=== PATIENT | female | born 1980 | race African-American/Black ===

== ENCOUNTER 2018-08-16 08:05 | Emergency (ER) | payer BC ==
[~2018-08-16] VITALS: Ht 165.1 cm; Wt 95.3 kg
--- OUTSIDE RECORDS SUMMARY | 2018-08-16 08:08 | XMS REPORT | Clinical Summary ---
Author Author Arturo [facility] Organization [place] [facility] Address Unknown Phone Unavailable Care Team Providers Care Apprentice Architect Name Role Phone Asked, No Pcp PCP Unavailable Allergies No Known Allergies Medications End Date Status Medication Sig Dispensed Refills Start Date Active amLODIPine (NORVASC) 10 Take 10 mg by 0 mg tablet mouth daily. Active triamterene-hydrochloroth Take 1 tablet 0 iazid (MAXZIDE) 75-50 mg by mouth per tablet daily. Active Problems Not on file Encounters Care Team Description Date Type Specialty Krzysztof Vaca MD Secondary hypertension (Primary Dx) 08/15/2018 Emergency Emergency Medicine after 08/15/2017 Social History Date Tobacco Use Types Packs/Day Years Used Never Smoker Smokeless Tobacco: Never Used Alcohol Use Drinks/Week oz/Week Comments No Alcohol Habits Answer Date Recorded How often do you have a drink containing alcohol? Never 08/15/2018 How many drinks containing alcohol do you have on Not asked a typical day when you are drinking? How often do you have six or more drinks on one Not asked occasion? Sex Assigned at Date Recorded Not on file Industry Job Start Date Occupation Not on file Not on file Not on file Travel End Travel History Travel Start No recent travel history available. Last Filed Vital Signs Time Taken Vital Sign Reading 08/15/2018 7:38 AM [employer] Blood Pressure 129/81 08/15/2018 7:38 AM [employer] Pulse 93 08/15/2018 7:38 AM [employer] Temperature 36.6 C (97.8 F) 08/15/2018 7:38 AM [employer] Respiratory Rate 16 08/15/2018 7:38 AM [employer] Oxygen Saturation 98% - Inhaled Oxygen - Concentration 08/15/2018 7:36 AM [employer] Weight 99.8 kg (220 lb) 08/15/2018 7:36 AM [employer] Height 165.1 cm (5' 5") 08/15/2018 7:36 AM [employer] Body Mass Index 36.61 Plan of Treatment Not on file Procedures Comments Procedure Name Priority Date/Time Associated Diagnosis HCG QUALITATIVE, URINE Timed 08/15/2018 SCREEN 8:25 AM [employer] after 08/15/2017 Results * hCG qualitative, urine screen (08/15/2018 8:25 AM [employer]) hCG qualitative, urine Negative Negative ARTURO BORJAS Comment: [facility] The manufacturers stated sensitivity of HcG test for serum is >/=10 mIU/ml and urine is >/=20mIU/ml. Specimen Urine Performing Organization Address City/State/[place]code Phone Number [facility] [place] [address] [place] [phone] PATHOLOGY AND GENOMIC MEDICINE ARTURO BORJAS [place] [id number] [address] after 08/15/2017 Insurance Payer Benefit Subscriber ID Type Phone Address Plan / Group BCBS BCBS xxxxxxxxxxxx PPO CHOICE PPO/LORENZA ALARCON PPO Advance Directives Patient has advance care planning documents on file. For more information, ronaldo benites contact: Arturo Borjas [address] [place] [address]
[2018-08-16] MEDS ORDERED: ACETAMINOPHEN 325 MG TAB PO ONE (08:30)
[2018-08-16] MEDS ORDERED: CLONIDINE HCL 0.1 MG TAB PO ONE (08:30)
[2018-08-16] MEDS ORDERED: FAMOTIDINE 20 MG/2 ML VIAL IV STA (08:48)
[2018-08-16] MEDS ORDERED: ENALAPRILAT IV INJ 1.25 MG/ML VIAL IV STA (08:48)
[2018-08-16] MEDS ORDERED: ONDANSETRON HCL INJ 2 MG/ML VIAL IV STA (08:48)
[2018-08-16] MEDS ORDERED: KETOROLAC TROMETHAMINE 30 MG/ML VIAL IV STA (08:48)
[2018-08-16] MEDS ORDERED: DEXAMETHASONE SOD PHOS 10 MG/1 ML VIAL IV ONE (09:00)
[2018-08-16] MEDS ORDERED: NICARDIPINE HCL SOLN 20 MG in SODIUM CHLORIDE 0.9% 250ML 200 ML IV ONE (09:15)
--- NOTE | 2018-08-16 09:51 | Diagnostic Imaging Report ---
CT BRAIN -[facility] HISTORY: Headache, high blood pressure COMPARISON: None. TECHNIQUE: Noncontrast axial scans were obtained from skull base to the vertex. Coronal and sagittal reconstructions obtained from the axial data. One or more of the following dose reduction techniques were used: Automated exposure control, adjustment of the mA and/or kV according to patient size, and/or utilization of iterative reconstruction technique. DISCUSSION: Scalp/Skull: Unremarkable. Brain sulci: Appropriate for patient's age. Ventricles: Normal in size and configuration. No hydrocephalus. Extra-axial spaces: No masses or fluid collections. Parenchyma: Minimal carotid siphon calcification is present. No masses, hemorrhage, or large vascular territory acute infarct. Dural sinuses: No abnormal densities. Sellar/Suprasellar region: Intact. Skull base: Intact. Incidental findings: None. IMPRESSION: No acute intracranial abnormalities. Signed by: Dr. Will Monterroso M.D. on 08/16/2018 9:48 AM
[2018-08-16 10:27] VITALS: BP 124/82
== END 2018-08-16 10:35 | disposition home or self-care (01) ==
LOC: FSED 08:05
DX: I16.0 Hypertensive urgency (principal); I10 Essential (primary) hypertension
CPT/HCPCS: 70450; 80053; 81003; 81025; 85025; 93005; 99284; J1100; J1885; J2405; J7050

== ENCOUNTER 2018-11-03 14:53 | Emergency (ER) | payer BC ==
[~2018-11-03] VITALS: Ht 165.1 cm; Wt 95.3 kg
--- OUTSIDE RECORDS SUMMARY | 2018-11-03 14:55 | XMS REPORT | Clinical Summary ---
Author Author Arturo [facility] Organization [place] [facility] Address Unknown Phone Unavailable Care Team Providers Care Digital Printer Operator Name Role Phone Asked, No Pcp PCP [...] (Primary Dx) 08/15/2018 Emergency Emergency Medicine after 11/02/2017 Social History Date Tobacco Use Types Packs/Day [...] Taken Vital Sign Reading 08/15/2018 7:38 AM CUSTOMER CARE SPECIALIST Blood Pressure 129/81 08/15/2018 7:38 AM CUSTOMER CARE SPECIALIST Pulse 93 08/15/2018 7:38 AM CUSTOMER CARE SPECIALIST Temperature 36.6 C (97.8 F) 08/15/2018 7:38 AM CUSTOMER CARE SPECIALIST Respiratory Rate 16 08/15/2018 7:38 AM CUSTOMER CARE SPECIALIST Oxygen Saturation 98% - Inhaled Oxygen - Concentration 08/15/2018 7:36 AM CUSTOMER CARE SPECIALIST Weight 99.8 kg (220 lb) 08/15/2018 7:36 AM CUSTOMER CARE SPECIALIST Height 165.1 cm (5' 5") 08/15/2018 7:36 AM CUSTOMER CARE SPECIALIST Body Mass Index 36.61 Plan of Treatment Not on file Procedures Comments Procedure Name Priority Date/Time Associated Diagnosis HCG QUALITATIVE, URINE Timed 08/15/2018 SCREEN 8:25 AM CUSTOMER CARE SPECIALIST after 11/02/2017 Results * hCG qualitative, urine screen (08/15/2018 8:25 AM CUSTOMER CARE SPECIALIST) hCG qualitative, urine Negative Negative ARTURO BORJAS Comment: [facility] The manufacturers stated sensitivity of HcG test for serum is >/=10 mIU/ml and urine is >/=20mIU/ml. Specimen Urine Performing Organization Address City/State/Zipcode Phone Number [facility] [place] [address] [place] [phone] PATHOLOGY AND GENOMIC MEDICINE ARTURO BORJAS [place] [id number] [address] after 11/02/2017 Insurance Payer Benefit Subscriber ID Type Phone Address Plan / Group BCBS BCBS xxxxxxxxxxxx PPO CHOICE PPO/LORENZA ALARCON PPO Advance Directives Patient has advance care planning documents on file. For more information, ronaldo benites contact: Arturo Borjas [address] [place] [address]
--- OUTSIDE RECORDS SUMMARY | 2018-11-03 14:55 | XMS REPORT ---
Author Author [facility] Address Unknown Phone Unavailable Care Team Providers Care Web Engineer Name Role Phone Catracho LEONARDO Unavailable Unavailable Problems This patient has no known problems. Allergies, Adverse Reactions, Alerts This patient has no known allergies or adverse reactions. Medications This patient has no known medications. Results Test Description Test Time Test Comments Text Results Atomic Results Result Comments CT BRAIN WO-HOPD 2018-08-16 09:44:00 [place] [address] Patient Name: VANESSA TOBAR MR #: [id number] : 1980 Age/Sex: 37/F Req #: [id number] Adm Physician: Ordered by: MAN LEONARDO MD Report #: [id number] Location: [facility] Room/Bed: Procedure: [id number] HOPD/CT BRAIN WO-HOPD Exam Date: 08/16/18 Exam Time: 0910 REPORT STATUS: Signed CT BRAIN WO-HOPD HISTORY: Headache, high blood pressure COMPARISON: None. TECHNIQUE: Noncontrast axial scans were obtained from skull base to the vertex. Coronal and sagittal reconstructions obtained from the axial data. One or more of the following dose reduction techniques were used: Automated exposure control, adjustment of the mA and/or kV according to patient size, and/or utilization of iterative reconstruction tech nique. DISCUSSION: Scalp/Skull: Unremarkable. Brain sulci: Appropriate for patient's age. Ventricles: Normal in size and configuration. No hydrocephalus. Extra-axial spaces: No masses or fluid collections. Parenchyma: Minimal carotid siphon calcification is present. No masses, hemorrhage, or large vascular territory acute infarct. Dural sinuses: No abnormal densities. Sellar/Suprasellar region: Intact. Skull base: Intact. Incidental findings: None. IMPRESSION: No acute intracranial abnormalities. Signed by: Dr. Will Martinez M.D. on 08/16/2018 9:48 AM Dictated By: WILL MARTINEZ MD 7 Transcribed By: BRENDA on 08/16/18947 COPY TO: MAN LEONARDO MD
[2018-11-03] MEDS ORDERED: ALBUTEROL/IPRATROPIUM 3 ML NEB NEB ONE (15:15)
[2018-11-03] MEDS ORDERED: ALBUTEROL SULF 0.083% NEB SOLN 3 ML NEB NEB STA (15:42)
[2018-11-03] MEDS ORDERED: METHYLPREDNISOLONE SOD SUCC 125 MG/2ML VIAL IM ONE (15:45)
[2018-11-03 16:51] VITALS: BP 160/90
== END 2018-11-03 16:59 | disposition home or self-care (01) ==
LOC: FSED 14:53
DX: R06.00 Dyspnea, unspecified (principal); J98.01 Acute bronchospasm; J45.31 Mild persistent asthma with (acute) exacerbation
CPT/HCPCS: 87400; 99283; J2930

== ENCOUNTER 2019-01-13 08:22 | Emergency (ER) | payer BC ==
[~2019-01-13] VITALS: Ht 165.1 cm; Wt 99.8 kg
--- OUTSIDE RECORDS SUMMARY | 2019-01-13 08:24 | XMS REPORT | Clinical Summary ---
Author Author [place] [facility] Organization [place] [facility] Address Unknown Phone Unavailable Care Team Providers Care Equipment Operator Intermodal Yard Name Role Phone Liu Esqueda MD PCP Unavailable Allergies No Known Allergies Medications [...] (Primary Dx) 08/15/2018 Emergency Emergency Medicine after 01/12/2018 Social History Date Tobacco Use Types Packs/Day [...] Taken Vital Sign Reading 08/15/2018 7:38 AM SPINDLE TESTER Blood Pressure 129/81 08/15/2018 7:38 AM SPINDLE TESTER Pulse 93 08/15/2018 7:38 AM SPINDLE TESTER Temperature 36.6 C (97.8 F) 08/15/2018 7:38 AM SPINDLE TESTER Respiratory Rate 16 08/15/2018 7:38 AM SPINDLE TESTER Oxygen Saturation 98% - Inhaled Oxygen - Concentration 08/15/2018 7:36 AM SPINDLE TESTER Weight 99.8 kg (220 lb) 08/15/2018 7:36 AM SPINDLE TESTER Height 165.1 cm (5' 5") 08/15/2018 7:36 AM SPINDLE TESTER Body Mass Index 36.61 Plan of Treatment Not on file Procedures Comments Procedure Name Priority Date/Time Associated Diagnosis HCG QUALITATIVE, URINE Timed 08/15/2018 SCREEN 8:25 AM SPINDLE TESTER after 01/12/2018 Results * hCG qualitative, urine screen (08/15/2018 8:25 AM SPINDLE TESTER) hCG qualitative, urine Negative Negative ARTURO BORJAS Comment: [facility] The manufacturers stated sensitivity of HcG test for serum is >/=10 mIU/ml and urine is >/=20mIU/ml. Specimen Urine Performing Organization Address City/State/Zipcode Phone Number [facility] [place] OF [address] [place] [address] PATHOLOGY AND GENOMIC MEDICINE ARTURO BORJAS [facility] [address] after 01/12/2018 Insurance Payer Benefit Subscriber ID Type Phone Address Plan / Group BCBS BCBS xxxxxxxxxxxx PPO CHOICE PPO/[place] [address] Advance Directives Patient has advance care planning documents on file. For more information, ronaldo benites contact: Arturo Borjas [address] [place] [address]
--- NOTE | 2019-01-13 09:00 | NUR ---
US TECH CALLED ETA 45 MINS
--- NOTE | 2019-01-13 09:43 | NUR ---
US TECH AT BEDSIDE, PT VOICES NO COMPLAINTS AT THIS TIME
--- NOTE | 2019-01-13 12:00 | NUR ---
PT RESTING, VITAL SIGNS STABLE, PT AWARE OF POC, PT VOICES NO COMPLAINTS AT THIS TIME.
--- NOTE | 2019-01-13 12:28 | Diagnostic Imaging Report ---
EXAM: US PELVIS OB <14 WEEKS-HOPD DATE: 01/13/2019 12:00 AM Time stamp on exam: 10:52 AM INDICATION: Spotting and cramping COMPARISON: None TECHNIQUE: Transvaginal sonographic images of the pelvis were obtained using pang scale and color doppler. Transvaginal imaging was medically necessary to better evaluate the fetus. G 2P1A 0 LMP 10/20/2018 Clinical gestational age: 12w1d FINDINGS: UTERUS: Size: 8.2 x 6.0 x 6.4 cm Mass: None Cervix: The cervix was not well visualized. There is trace fluid in the endometrial canal. GESTATIONAL SAC: Normal appearance of intrauterine gestational sac. No evidence of a subchorionic hemorrhage. Mean sac diameter: 16.4 mm, 6w0d. YOLK SAC: Not visualized with certainty EMBRYO/FETUS: [place] rump length: 4.1 mm Estimated sonographic gestational age: 6w1d Cardiac activity: Cardiac activity not documented, likely due to early gestation RIGHT OVARY: 2.8 x 1.5 x 2.1 cm No abnormal cysts or masses. LEFT OVARY: 4.9 x 3.9 x 3.8 cm (images are labeled "RT OV"; confirmed by whip operator to be the left ovary with a cyst) Cyst measures 3.2 x 2.7 x 3.3 cm., likely corpus luteum. CUL-DE-SAC: No free fluid. IMPRESSION: There is an early intrauterine gestation. pole is not well seen, cardiac activity not documented, likely due to early gestation. Yolk sac was only questionably visualized. Consider following beta-hCG trend, with short-term follow-up ultrasound to reassess gestation. Estimated sonographic age of 6w1d. Signed by: Dr. Vahid De Anda M.D. on 01/13/2019 12:25 PM
[2019-01-13 13:14] VITALS: BP 142/89
== END 2019-01-13 13:23 | disposition home or self-care (01) ==
LOC: ER 08:22 → FSED 13:23
DX: O20.9 Hemorrhage in early pregnancy, unspecified (principal); O20.0 Threatened abortion
CPT/HCPCS: 36415; 76801; 80053; 81003; 84702; 85025; 86900; 99283

== ENCOUNTER → 2019-07-06 | Outpatient (CLI) | payer BC | LOC: MAMMO 11:48 | PROVIDERS: ATTEND Family Medicine | DX: Z12.31 Encounter for screening mammogram for malignant neoplasm of breast (principal) | CPT/HCPCS: 77067 ==

== ENCOUNTER → 2020-07-12 | Outpatient (CLI) | payer BC | LOC: MAMMO 10:04 | PROVIDERS: ATTEND Family Medicine | DX: Z12.31 Encounter for screening mammogram for malignant neoplasm of breast (principal) | CPT/HCPCS: 77067 ==

== ENCOUNTER → 2020-08-01 | Outpatient (CLI) | payer BC ==
--- NOTE | 2020-08-02 08:16 | Diagnostic Imaging Report ---
#[id number] - MGDXLT #UNILATERAL LEFT DIGITAL DIAGNOSTIC MAMMOGRAM WITH SPOT COMPRESSION: 08/01/2020 Comparison is made to exams dated: 07/12/2020 mammogram and 07/06/2019 mammogram - [facility]. The tissue of the left breast is predominantly fatty. There is a lobulated mass with a circumscribed margin in the left breast at 8 o'clock middle depth. No other significant masses or calcifications are seen in the breast. IMPRESSION: INCOMPLETE: NEEDS ADDITIONAL IMAGING EVALUATION The lobulated mass in the left breast is indeterminate. An ultrasound is recommended. OPAL ARAUJO M.D., mp/penrad:08/01/2020 16:45:29 Dealer Relationship Manager: Rose RAMIREZ(R)(M), [facility] Mammogram BI-RADS: 0 Indeterminate
--- NOTE | 2020-08-02 08:16 | Diagnostic Imaging Report ---
#[id number] - USBRELIMLT ULTRASOUND OF THE LEFT BREAST : 08/01/2020 Comparison is made to exam dated: 08/01/2020 mammogram - [facility]. Color flow and real-time ultrasound were performed on the left breast. There is a possible 5 mm oval cyst with a thickened wall in the left breast at 11 o'clock middle depth. This oval cyst displays an echogenic boundary. IMPRESSION: PROBABLY BENIGN - FOLLOW-UP RECOMMENDED The possible 5 mm oval cyst in the left breast is consistent with a complex cyst and is probably benign. A follow-up in 6 months is recommended. A follow-up mammogram and an ultrasound in 6 months is recommended to demonstrate stability. The patient has been or will be contacted. OPAL ARAUJO M.D., mp/deion:08/01/2020 16:47:49 Barrel Racer: Serafin Smith [facility], [facility] letter sent: Followup Recommended Ultrasound BI-RADS: 3 Probably benign
== END ==
LOC: MAMMO 09:51
PROVIDERS: ATTEND Family Medicine
DX: N64.89 Other specified disorders of breast (principal)

== ENCOUNTER 2020-11-28 18:11 | Emergency (ER) | payer BC, OTHER ==
[~2020-11-28] VITALS: Ht 165.1 cm; Wt 99.8 kg
[2020-11-28] MEDS ORDERED: ACETAMINOPHEN 325 MG TAB PO ONE (18:30)
[2020-11-28 18:53] LABS: BASOPHILS % 0.6 % (0.0-1.0); EOSINOPHILS # (AUTO) 0.1 (0.0-0.4); EOSINOPHILS % 2.1 % (0.0-6.0); HEMATOCRIT 37.6 % (34.2-44.1); HEMOGLOBIN 12.4 g/dL (12.0-16.0); LYMPHOCYTES # (AUTO) 2.4 (1.0-3.2); LYMPHOCYTES % 35.6 % (18.0-39.1); MEAN CORPUSCULAR HEMOGLOBIN 25.9 pg (28-32); MEAN CORPUSCULAR VOLUME 78.5 fL (81-99); MONOCYTES # (AUTO) 0.7 (0.2-0.8); NEUTROPHILS # (AUTO) 3.4 (2.1-6.9); NEUTROPHILS % 51.4 % (38.7-80.0); PLATELET COUNT 379 x10e3/uL (140-360); RED BLOOD COUNT 4.79 x10e6/uL (3.6-5.1); RED CELL DISTRIBUTION WIDTH 14.4 % (11.7-14.4)
[2020-11-28] MEDS ORDERED: CLONIDINE HCL 0.1 MG TAB PO ONE (19:00)
[2020-11-28 19:06] LABS: ALANINE AMINOTRANSFERASE 6 IU/L (0-55); ALBUMIN 3.7 g/dL (3.5-5.0); ALBUMIN/GLOBULIN RATIO 0.9 (0.8-2.0); ALKALINE PHOSPHATASE 47 IU/L (40-150); BLOOD UREA NITROGEN 11 mg/dL (7-26); BUN/CREATININE RATIO 11 (6-25); CALCIUM 9.3 mg/dL (8.4-10.2); CARBON DIOXIDE 24 mmol/L (22-29); CHLORIDE 106 mmol/L (98-107); CREATINE KINASE 102 IU/L (29-168); CREATININE, SERUM 1.01 mg/dL (0.57-1.11); EST GLOMERULAR FILTRATION RATE > 60 ML/MIN (60-); GLUCOSE 105 mg/dL (74-118); SODIUM 142 mmol/L (136-145)
[2020-11-28 19:09] LABS: INR 0.89; PROTHROMBIN TIME 12.5 seconds (11.9-14.5)
[2020-11-28 19:10] LABS: PARTIAL THROMBOPLASTIN TIME 29.4 seconds (23.8-35.5)
[2020-11-28 20:57] LABS: CLARITY,URINE CLEAR (CLEAR); COLOR,URINE YELLOW (YELLOW); LEUKOCYTE ESTERASE ,URINE NEGATIVE (NEGATIVE); NITRITE,URINE NEGATIVE (NEGATIVE)
[2020-11-28 20:58] LABS: KETONES,URINE NEGATIVE (NEGATIVE); PROTEIN,URINE DIPSTICK NEGATIVE (NEGATIVE); URINE UROBILINOGEN 0.2 mg/dL (0.2 - 1)
[2020-11-28 21:08] LABS: AMORPHOUS SEDIMENT,URINE MODERATE (FEW); BACTERIA,URINE FEW /HPF
== END 2020-11-28 21:55 | disposition home or self-care (01) ==
LOC: ER 18:41
DX: R07.9 Chest pain, unspecified (principal); R06.02 Shortness of breath; R50.9 Fever, unspecified; R05 Cough; I10 Essential (primary) hypertension; J45.909 Unspecified asthma, uncomplicated; R94.31 Abnormal electrocardiogram [ECG] [EKG]
CPT/HCPCS: 36415; 71045; 80053; 81001; 82550; 82553; 83605; 83880; 84484; 85025; 85379; 85610; 85730; 87040; 93005; 99284; U0002